=== PATIENT | female | born 1990 | race Caucasian/White ===

== ENCOUNTER → 2018-06-10 | Outpatient (CLI) | payer OTHER ==
[2016-12-17 08:15] VITALS: BMI 33.1
[~2018-06-10] MED LIST: ACET-1718 PO; IBUP800T37 PO; PREN-127 PO
[2018-06-10 11:23] LABS: PLATELET COUNT, AUTOMATED 345 K/uL (150-450)
== END ==
LOC: LAB 08:10
PROVIDERS: ATTEND Student in an Organized Health Care Education/Training Program
DX: Z34.91 Encounter for supervision of normal pregnancy, unspecified, first trimester (principal)
CPT/HCPCS: 81001; 85025; 86592; 86703; 86762; 86850; 86900; 86901; 87088; 87340

== ENCOUNTER → 2018-06-23 | Outpatient (CLI) | payer OTHER ==
[2016-12-17 08:15] VITALS: BMI 33.1
[~2018-06-23] MED LIST changes: +FLU60SYR36 IM
== END ==
LOC: LAB 08:08
PROVIDERS: ATTEND Student in an Organized Health Care Education/Training Program
DX: Z34.91 Encounter for supervision of normal pregnancy, unspecified, first trimester (principal)
CPT/HCPCS: 87491; 87591

== ENCOUNTER → 2018-12-19 | Outpatient (CLI) | payer OTHER ==
[2016-12-17 08:15] VITALS: BMI 33.1
[~2018-12-19] MED LIST changes: +MISO200T62 PO
== END ==
LOC: LAB 07:59
PROVIDERS: ATTEND Student in an Organized Health Care Education/Training Program
DX: Z34.81 Encounter for supervision of other normal pregnancy, first trimester (principal)
CPT/HCPCS: 36415; 81001; 86703; 87088

== ENCOUNTER → 2018-12-29 | Outpatient (CLI) | payer OTHER ==
[2016-12-17 08:15] VITALS: BMI 33.1
== END ==
LOC: LAB 08:16
PROVIDERS: ATTEND Student in an Organized Health Care Education/Training Program
DX: Z34.91 Encounter for supervision of normal pregnancy, unspecified, first trimester (principal)
CPT/HCPCS: 87491; 87591